=== PATIENT | male | born 1980 | race Caucasian/White ===

== ENCOUNTER 2021-03-24 22:57 | Inpatient (IN) ==
[2021-03-25] MEDS ORDERED: Naloxone 0.4 MG/ML INJ IVP PRN (01:33)
[2021-03-25 02:38] LABS: Amphetamine Screen,Urine Negative ng/mL (Cutoff=1000); Barbiturate Screen,Urine Negative ng/mL (Cutoff=200); Benzodiazepines Screen,Urine Negative ng/mL (Cutoff=200); Cannabinoid Screen,Urine Negative ng/mL (Cutoff = 50); Cocaine Screen,Urine Negative ng/mL (Cutoff= 300); Opiate Screen,Urine Positive ng/mL (Cutoff=300); Phencyclidine Screen,Urine Negative ng/mL (Cutoff=25)
[2021-03-25 02:45] LABS: Bilirubin,Urine Negative (Negative); Blood,Urine Moderate (Negative); Clarity,Urine Turbid (Clear); Color,Urine Yellow (Yellow); Glucose,Urine (UA) >=1000 mg/dL (Normal); Granular Casts,Urine Few per lpf (None Seen); Hyaline Casts,Urine Few per lpf (None Seen); Ketones,Urine Negative (Negative); Leukocyte Esterase,Urine Negative (Negative); Mucus,Urine Few per lpf (None-Few); Nitrite,Urine Negative (Negative); Protein,Urine >=300 mg/dL (Neg-Trace); Specific Gravity,Urine 1.025 (1.010-1.025); Urobilinogen,Urine Normal (Normal)
[2021-03-25] MEDS ORDERED: Melatonin 3 MG TABLET PO PRN (02:52)
[2021-03-25] MEDS ORDERED: Dextrose Gel 15 GM/37.5 ML TUBE PO PRN ×2 (02:54)
[2021-03-25 05:07] LABS: INR 1.2; Prothrombin Time 13.6 Seconds (9.4-12.1)
[2021-03-25 05:11] LABS: Activated Partial Thrombo Time 28.7 Seconds (26.0-36.0)
[2021-03-25 05:16] LABS: Basophils # 0.1 K/mcL (0.0-0.2); Basophils % 0.4 %; Eosinophils # 0.2 K/mcL (0.0-0.6); Eosinophils % 1.6 %; Hemoglobin 9.4 g/dL (12.9-16.9); Immature Granulocytes % 2.7 % (0-4); Lymphocytes # 2.2 K/mcL (0.6-4.6); Lymphocytes % 15.7 %; Mean Corpuscular HGB Conc 31.3 g/dL (31.6-35.5); Mean Corpuscular Hemoglobin 23.9 pg (28.0-33.3); Mean Corpuscular Volume 76.3 fL (83.0-100.0); Mean Platelet Volume 8.4 fL (9.4-12.4); Monocytes # 1.5 K/mcL (0.0-1.3); Monocytes % 10.6 %; Neutrophils # 9.5 K/mcL (1.6-8.9); Platelet Count 407 K/mcL (140-400); Red Blood Count 3.93 M/mcL (4.19-5.50); Red Cell Distribution Width 17.2 % (11.5-14.5); White Blood Count 13.8 K/mcL (4.3-11.1)
[2021-03-25] MEDS: Piperacillin/Tazobactam 3.375 GM in 0.9 % Sodium Chloride Mini Bag 100 ML IVPB SCH ×3 (05:18→21:03)
[2021-03-25 05:40] LABS: Albumin 2.9 g/dL (3.5-5.7); Albumin/Globulin Ratio 0.9 (1.1-2.2); Bilirubin,Total 0.2 mg/dL (0.3-1.0); Calcium 8.3 mg/dL (8.6-10.3); Globulin 3.3 g/dL (2.4-3.5); Phosphorous 4.3 mg/dL (2.7-4.5); Potassium 3.8 mEq/L (3.5-5.1); Total Protein 6.2 g/dL (6.4-8.9)
[2021-03-25] MEDS ORDERED: Acetaminophen IV 1,000 MG/100 ML BAG IVPB ONE (06:53)
[2021-03-25 16:43] LABS: Estimated Average Glucose 235 mg/dl; Hemoglobin A1C 9.8 %
[2021-03-25] MEDS ORDERED: Vancomycin 1,750 MG/517.5 ML IV.SOLN IVPB SCH (20:00)
[2021-03-26] MEDS: Piperacillin/Tazobactam 3.375 GM in 0.9 % Sodium Chloride Mini Bag 100 ML IVPB SCH ×2 (04:38→13:50)
[2021-03-26 10:21] LABS: Basophils % 0.6 %
[2021-03-26 10:22] LABS: Eosinophils % 2.4 %; Immature Granulocytes % 1.6 % (0-4); Lymphocytes % 17.2 %; Monocytes % 8.1 %; Segmented Neutrophils % 70.1 %
[2021-03-26 10:32] LABS: Eosinophils # 0.2 K/mcL (0.0-0.6); Hematocrit 27.4 % (37.5-50.1); Hemoglobin 8.9 g/dL (12.9-16.9); Immature Platelets 0.3 % (1.1-6.1); Lymphocytes # 1.2 K/mcL (0.6-4.6); Mean Corpuscular HGB Conc 32.5 g/dL (31.6-35.5); Mean Corpuscular Hemoglobin 24.1 pg (28.0-33.3); Mean Corpuscular Volume 74.3 fL (83.0-100.0); Monocytes # 0.6 K/mcL (0.0-1.3); Neutrophils # 5.1 K/mcL (1.6-8.9); Platelet Count 382 K/mcL (140-400); Red Blood Count 3.69 M/mcL (4.19-5.50); Red Cell Distribution Width 17.1 % (11.5-14.5); White Blood Count 7.2 K/mcL (4.3-11.1)
[2021-03-26 12:07] LABS: BUN/Creatinine Ratio 10 (6-26); Blood Urea Nitrogen 14 mg/dL (6-20); Carbon Dioxide 23 mEq/L (23-29); Chloride 104 mEq/L (98-107); Glucose 240 mg/dL (70-105); Osmolality,Calculated 282 (280-300); Potassium 4.8 mEq/L (3.5-5.1); Sodium 132 mEq/L (136-145); eGFR For African Americans > 60 (> 60); eGFR For Non-African Americans 56 (> 60)
[2021-03-26 13:34] LABS: C-Reactive Protein 141 mg/L (Less than 10)
[2021-03-26] MEDS: Ondansetron 4 MG/2 ML VIAL IVP PRN (14:25)
[2021-03-26] MEDS ORDERED: Vancomycin 1,500 MG/265 ML IV.SOLN IVPB SCH (15:00)
[2021-03-26] MEDS ORDERED: *HR* Heparin 5,000 UNIT/ML VIAL IVP PRN ×2 (16:38)
[2021-03-26] MEDS ORDERED: *HR* Heparin 5,000 UNIT/ML VIAL IVP ONE (16:38)
[2021-03-26] MEDS ORDERED: Heparin 25,000UNIT/250ML 1/2NS 25,000 UNIT/250 ML IV.SOLN IVC SCH (16:45)
[2021-03-26 17:28] LABS: Hematocrit 27.1 % (37.5-50.1); Hemoglobin 8.8 g/dL (12.9-16.9); Mean Corpuscular HGB Conc 32.5 g/dL (31.6-35.5); Mean Corpuscular Hemoglobin 24.1 pg (28.0-33.3); Mean Corpuscular Volume 74.2 fL (83.0-100.0); Mean Platelet Volume 7.8 fL (9.4-12.4); Platelet Count 357 K/mcL (140-400); Red Blood Count 3.65 M/mcL (4.19-5.50); Red Cell Distribution Width 17.1 % (11.5-14.5); White Blood Count 8.3 K/mcL (4.3-11.1)
[2021-03-26 17:36] LABS: Heparin anti-factor XA UFH < 0.04 IU/mL (0.30-0.70)
[2021-03-26 17:37] LABS: INR 1.1; Prothrombin Time 12.3 Seconds (9.4-12.1)
[2021-03-26] MEDS: amLODIPine 5 MG TABLET PO SCH (18:29)
[2021-03-26] MEDS ORDERED: Vancomycin 1,750 MG/517.5 ML IV.SOLN IVPB SCH (20:00)
[2021-03-26] MEDS: *HR* Promethazine 25 MG/ML VIAL IM PRN (20:21)
[2021-03-26] MEDS ORDERED: Vancomycin 2,000 MG/520 ML IV.SOLN IVPB SCH (21:00)
[2021-03-27] MEDS: Piperacillin/Tazobactam 3.375 GM in 0.9 % Sodium Chloride Mini Bag 100 ML IVPB SCH ×4 (00:11→20:44)
[2021-03-27] MEDS: *HR* Enoxaparin 120 MG/0.8 ML SYRINGE SQ SCH ×4 (00:32→20:44)
[2021-03-27 06:07] LABS: Basophils % 0.6 %; Eosinophils # 0.1 K/mcL (0.0-0.6); Eosinophils % 1.2 %; Hematocrit 27.8 % (37.5-50.1); Hemoglobin 8.9 g/dL (12.9-16.9); Immature Granulocytes % 1.9 % (0-4); Lymphocytes # 1.6 K/mcL (0.6-4.6); Lymphocytes % 24.8 %; Mean Corpuscular Hemoglobin 23.8 pg (28.0-33.3); Mean Corpuscular Volume 74.3 fL (83.0-100.0); Mean Platelet Volume 7.9 fL (9.4-12.4); Monocytes # 0.6 K/mcL (0.0-1.3); Monocytes % 8.5 %; Neutrophils # 4.1 K/mcL (1.6-8.9); Platelet Count 374 K/mcL (140-400); Red Blood Count 3.74 M/mcL (4.19-5.50); Red Cell Distribution Width 17.1 % (11.5-14.5); White Blood Count 6.5 K/mcL (4.3-11.1)
[2021-03-27 06:47] LABS: BUN/Creatinine Ratio 8 (6-26); Blood Urea Nitrogen 11 mg/dL (6-20); Carbon Dioxide 24 mEq/L (23-29); Chloride 104 mEq/L (98-107); Glucose 219 mg/dL (70-105); Osmolality,Calculated 286 (280-300); Potassium 4.3 mEq/L (3.5-5.1); Sodium 135 mEq/L (136-145); eGFR For African Americans > 60 (> 60); eGFR For Non-African Americans > 60 (> 60)
[2021-03-27] MEDS: Insulin DETEMIR 100 UNIT/ML X5UNITS SUBQ SCH ×2 (08:35→20:43)
[2021-03-27] MEDS: amLODIPine 5 MG TABLET PO SCH (08:35)
[2021-03-27] MEDS: lisinopriL 10 MG TABLET PO SCH (08:35)
[2021-03-27] MEDS: Insulin LISPRO 300 UNITS/3 ML VIAL SUBQ SCH ×4 (08:35→20:43)
[2021-03-28] MEDS: *HR* Promethazine 25 MG/ML VIAL IM PRN ×2 (00:02→05:13)
[2021-03-28] MEDS: Ondansetron 4 MG/2 ML VIAL IVP PRN ×2 (02:23→08:58)
[2021-03-28] MEDS: niCARdipine 20 MG/200 ML MLS IVC SCH ×5 (04:25→20:36)
[2021-03-28] MEDS: Piperacillin/Tazobactam 3.375 GM in 0.9 % Sodium Chloride Mini Bag 100 ML IVPB SCH ×3 (05:00→20:43)
[2021-03-28] MEDS: *HR* Enoxaparin 120 MG/0.8 ML SYRINGE SQ SCH ×2 (05:03→17:11)
[2021-03-28 05:14] LABS: Basophils % 0.3 %; Eosinophils % 0.4 %; Hematocrit 28.2 % (37.5-50.1); Hemoglobin 9.3 g/dL (12.9-16.9); Immature Granulocytes % 1.2 % (0-4); Lymphocytes # 0.9 K/mcL (0.6-4.6); Lymphocytes % 8.8 %; Mean Corpuscular Hemoglobin 24.5 pg (28.0-33.3); Mean Corpuscular Volume 74.2 fL (83.0-100.0); Mean Platelet Volume 7.5 fL (9.4-12.4); Monocytes # 0.6 K/mcL (0.0-1.3); Neutrophils # 8.3 K/mcL (1.6-8.9); Platelet Count 369 K/mcL (140-400); Red Cell Distribution Width 16.7 % (11.5-14.5); Segmented Neutrophils % 83.3 %
[2021-03-28 05:18] LABS: White Blood Count 9.9 K/mcL (4.3-11.1)
[2021-03-28 05:31] LABS: BUN/Creatinine Ratio 6 (6-26); Blood Urea Nitrogen 8 mg/dL (6-20); Carbon Dioxide 25 mEq/L (23-29); Chloride 103 mEq/L (98-107); Glucose 126 mg/dL (70-105); Osmolality,Calculated 282 (280-300); Potassium 3.5 mEq/L (3.5-5.1); Sodium 136 mEq/L (136-145); eGFR For African Americans > 60 (> 60); eGFR For Non-African Americans > 60 (> 60)
[2021-03-28] MEDS: Insulin LISPRO 300 UNITS/3 ML VIAL SUBQ SCH ×4 (05:49→20:41)
[2021-03-28 08:10] LABS: Lipase 16 Units/L (11-82)
[2021-03-28] MEDS ORDERED: Ondansetron 4 MG/2 ML VIAL IVP PRN (08:49)
[2021-03-28] MEDS: Insulin DETEMIR 100 UNIT/ML X5UNITS SUBQ SCH ×2 (08:49→20:41)
[2021-03-28] MEDS: Pantoprazole 40 MG VIAL IVP SCH ×2 (10:00→17:11)
[2021-03-28] MEDS: lisinopriL 10 MG TABLET PO SCH ×2 (10:01→10:05)
[2021-03-28] MEDS: amLODIPine 5 MG TABLET PO SCH ×2 (10:01→10:05)
[2021-03-28] MEDS ORDERED: Isovue-370 500 ML BOTTLE IVP ONE (10:15)
[2021-03-28] MEDS ORDERED: *HR* HYDROmorphone (PF) 1 MG/ML SYRINGE IVP ONE (18:53)
[2021-03-28] MEDS: niCARdipine 40 MG/200 ML MLS IVC SCH (23:00)
[2021-03-29 02:18] LABS: BUN/Creatinine Ratio 8 (6-26); Basophils % 0.5 %; Blood Urea Nitrogen 11 mg/dL (6-20); Calcium 7.8 mg/dL (8.6-10.3); Carbon Dioxide 27 mEq/L (23-29); Chloride 106 mEq/L (98-107); Eosinophils % 0.4 %; Glucose 179 mg/dL (70-105); Hematocrit 27.4 % (37.5-50.1); Hemoglobin 8.5 g/dL (12.9-16.9); Immature Granulocytes % 1.5 % (0-4); Lymphocytes # 1.5 K/mcL (0.6-4.6); Lymphocytes % 19.9 %; Mean Corpuscular Hemoglobin 23.5 pg (28.0-33.3); Mean Corpuscular Volume 75.7 fL (83.0-100.0); Mean Platelet Volume 7.6 fL (9.4-12.4); Monocytes # 0.8 K/mcL (0.0-1.3); Monocytes % 10.6 %; Osmolality,Calculated 288 (280-300); Platelet Count 338 K/mcL (140-400); Potassium 3.9 mEq/L (3.5-5.1); Red Blood Count 3.62 M/mcL (4.19-5.50); Red Cell Distribution Width 16.9 % (11.5-14.5); Segmented Neutrophils % 67.1 %; Sodium 137 mEq/L (136-145); White Blood Count 7.4 K/mcL (4.3-11.1); eGFR For African Americans > 60 (> 60); eGFR For Non-African Americans 59 (> 60)
[2021-03-29 02:32] LABS: Carcinoembryonic Antigen 3.9 ng/mL (Less than 5.0)
[2021-03-29] MEDS: *HR* Enoxaparin 120 MG/0.8 ML SYRINGE SQ SCH ×2 (05:12→17:30)
[2021-03-29] MEDS: Pantoprazole 40 MG VIAL IVP SCH ×2 (05:12→17:29)
[2021-03-29] MEDS: Piperacillin/Tazobactam 3.375 GM in 0.9 % Sodium Chloride Mini Bag 100 ML IVPB SCH ×3 (05:13→20:24)
[2021-03-29] MEDS: lisinopriL 10 MG TABLET PO SCH (08:32)
[2021-03-29] MEDS: amLODIPine 5 MG TABLET PO SCH (08:32)
[2021-03-29] MEDS: Insulin DETEMIR 100 UNIT/ML X5UNITS SUBQ SCH ×2 (08:43→20:24)
[2021-03-29] MEDS: Insulin LISPRO 300 UNITS/3 ML VIAL SUBQ SCH ×4 (08:44→21:17)
[2021-03-29] MEDS: *HR* Promethazine 25 MG/ML VIAL IM PRN ×2 (08:54→17:32)
[2021-03-29] MEDS: niCARdipine 40 MG/200 ML MLS IVC SCH ×3 (10:17→21:20)
[2021-03-29] MEDS: *HR* Dextrose 50 % in Water (Vial) 50 ML VIAL IVP PRN (20:23)
[2021-03-29] MEDS: D5% in Water 1,000 ML IVC PRN (22:09)
[2021-03-30] MEDS: *HR* Dextrose 50 % in Water (Vial) 50 ML VIAL IVP PRN ×4 (00:22→10:07)
[2021-03-30] MEDS: *HR* Promethazine 25 MG/ML VIAL IM PRN (03:53)
[2021-03-30] MEDS: D5% in Water 1,000 ML IVC PRN (06:37)
[2021-03-30] MEDS: niCARdipine 40 MG/200 ML MLS IVC SCH ×2 (07:42→10:06)
[2021-03-30] MEDS: Piperacillin/Tazobactam 3.375 GM in 0.9 % Sodium Chloride Mini Bag 100 ML IVPB SCH ×3 (07:42→15:09)
[2021-03-30] MEDS: amLODIPine 5 MG TABLET PO SCH (07:49)
[2021-03-30] MEDS: lisinopriL 10 MG TABLET PO SCH (07:49)
[2021-03-30] MEDS: *HR* Enoxaparin 120 MG/0.8 ML SYRINGE SQ SCH (07:49)
[2021-03-30] MEDS: Pantoprazole 40 MG VIAL IVP SCH ×2 (07:51→16:48)
[2021-03-30] MEDS: Insulin LISPRO 300 UNITS/3 ML VIAL SUBQ SCH ×4 (09:43→19:43)
[2021-03-30] MEDS: Insulin DETEMIR 100 UNIT/ML X5UNITS SUBQ SCH ×2 (09:44→19:43)
[2021-03-31] MEDS: Piperacillin/Tazobactam 3.375 GM in 0.9 % Sodium Chloride Mini Bag 100 ML IVPB SCH ×3 (00:37→14:59)
[2021-03-31 01:59] LABS: Basophils % 0.7 %; Eosinophils # 0.1 K/mcL (0.0-0.6); Eosinophils % 1.5 %; Hematocrit 30.7 % (37.5-50.1); Hemoglobin 9.6 g/dL (12.9-16.9); Lymphocytes # 1.9 K/mcL (0.6-4.6); Lymphocytes % 31.1 %; Mean Corpuscular HGB Conc 31.3 g/dL (31.6-35.5); Mean Corpuscular Hemoglobin 23.4 pg (28.0-33.3); Mean Corpuscular Volume 74.7 fL (83.0-100.0); Mean Platelet Volume 7.7 fL (9.4-12.4); Monocytes # 0.5 K/mcL (0.0-1.3); Monocytes % 8.2 %; Neutrophils # 3.4 K/mcL (1.6-8.9); Platelet Count 334 K/mcL (140-400); Red Blood Count 4.11 M/mcL (4.19-5.50); Red Cell Distribution Width 16.7 % (11.5-14.5); Segmented Neutrophils % 55.5 %; White Blood Count 6.1 K/mcL (4.3-11.1)
[2021-03-31 02:13] LABS: BUN/Creatinine Ratio 7 (6-26); Blood Urea Nitrogen 8 mg/dL (6-20); Calcium 7.8 mg/dL (8.6-10.3); Carbon Dioxide 23 mEq/L (23-29); Chloride 103 mEq/L (98-107); Glucose 128 mg/dL (70-105); Osmolality,Calculated 282 (280-300); Potassium 3.9 mEq/L (3.5-5.1); Sodium 136 mEq/L (136-145); eGFR For African Americans > 60 (> 60); eGFR For Non-African Americans > 60 (> 60)
[2021-03-31 02:29] LABS: Ferritin 71 ng/mL (20-250)
[2021-03-31] MEDS: Pantoprazole 40 MG VIAL IVP SCH ×2 (04:44→18:00)
[2021-03-31] MEDS: Insulin LISPRO 300 UNITS/3 ML VIAL SUBQ SCH ×4 (07:15→19:20)
[2021-03-31] MEDS: Insulin DETEMIR 100 UNIT/ML X5UNITS SUBQ SCH ×2 (07:16→19:19)
[2021-03-31] MEDS: lisinopriL 10 MG TABLET PO SCH (07:29)
[2021-03-31] MEDS: amLODIPine 5 MG TABLET PO SCH (07:29)
[2021-03-31 11:29] LABS: % Iron Saturation 11 % (20-55); Iron 28 mcg/dL (65-175); Transferrin 188 mg/dL (203-362)
[2021-03-31] MEDS ORDERED: *HR* FentaNYL (PF) 100 MCG/2 ML VIAL ONE (15:43)
[2021-03-31] MEDS ORDERED: Lidocaine -MPF 2% 2 ML VIAL ONE (15:43)
[2021-03-31] MEDS ORDERED: *HR* Midazolam HCl 2 MG/2 ML VIAL ONE (15:43)
[2021-03-31] MEDS ORDERED: *HR* Propofol 200 MG/20 ML VIAL IVP ONE (15:43)
[2021-03-31] MEDS ORDERED: *HR* OxyCODONE Immed Rel 5 MG TABLET PO PRN ×2 (15:51→18:12)
[2021-03-31] MEDS: *HR* HYDROmorphone PF 0.5 MG/0.5 ML SYRINGE IVP PRN ×3 (17:08→17:45)
[2021-03-31] MEDS ORDERED: *HR* Enoxaparin 100 MG/ML SYRINGE SQ STA ×2 (17:22→19:00)
[2021-03-31] MEDS ORDERED: Ondansetron 4 MG/2 ML VIAL IVP PRN (18:12)
[2021-03-31] MEDS ORDERED: *HR* HYDROmorphone PF 0.5 MG/0.5 ML SYRINGE IVP PRN (18:12)
[2021-03-31] MEDS ORDERED: *HR* Dextrose 50 % in Water (Vial) 50 ML VIAL IVP PRN (18:12)
[2021-03-31] MEDS ORDERED: D5% in Water 1,000 ML IVC PRN (18:12)
[2021-03-31] MEDS ORDERED: Naloxone 0.4 MG/ML INJ IVP PRN (18:12)
[2021-03-31] MEDS ORDERED: Dextrose Gel 15 GM/37.5 ML TUBE PO PRN ×2 (18:12)
[2021-04-01] MEDS: Piperacillin/Tazobactam 3.375 GM in 0.9 % Sodium Chloride Mini Bag 100 ML IVPB SCH ×4 (00:43→23:42)
[2021-04-01 01:34] LABS: Basophils % 0.7 %; Eosinophils # 0.1 K/mcL (0.0-0.6); Eosinophils % 1.9 %; Hematocrit 30.2 % (37.5-50.1); Hemoglobin 9.4 g/dL (12.9-16.9); Immature Granulocytes % 1.2 % (0-4); Lymphocytes # 1.8 K/mcL (0.6-4.6); Lymphocytes % 31.6 %; Mean Corpuscular HGB Conc 31.1 g/dL (31.6-35.5); Mean Corpuscular Hemoglobin 23.5 pg (28.0-33.3); Mean Corpuscular Volume 75.5 fL (83.0-100.0); Mean Platelet Volume 7.6 fL (9.4-12.4); Monocytes # 0.4 K/mcL (0.0-1.3); Monocytes % 6.5 %; Neutrophils # 3.4 K/mcL (1.6-8.9); Platelet Count 318 K/mcL (140-400); Red Cell Distribution Width 16.5 % (11.5-14.5); Segmented Neutrophils % 58.1 %; White Blood Count 5.8 K/mcL (4.3-11.1)
[2021-04-01 01:50] LABS: BUN/Creatinine Ratio 10 (6-26); Blood Urea Nitrogen 14 mg/dL (6-20); Calcium 7.7 mg/dL (8.6-10.3); Carbon Dioxide 24 mEq/L (23-29); Chloride 101 mEq/L (98-107); Glucose 231 mg/dL (70-105); Osmolality,Calculated 290 (280-300); Potassium 3.7 mEq/L (3.5-5.1); Sodium 136 mEq/L (136-145); eGFR For African Americans > 60 (> 60); eGFR For Non-African Americans 58 (> 60)
[2021-04-01] MEDS: *HR* Promethazine 25 MG/ML VIAL IM PRN ×2 (02:59→23:31)
[2021-04-01] MEDS: Pantoprazole 40 MG VIAL IVP SCH ×2 (05:08→16:31)
[2021-04-01] MEDS: amLODIPine 5 MG TABLET PO SCH (08:49)
[2021-04-01] MEDS: Insulin LISPRO 300 UNITS/3 ML VIAL SUBQ SCH ×4 (08:51→22:18)
[2021-04-01] MEDS: Insulin DETEMIR 100 UNIT/ML X5UNITS SUBQ SCH ×2 (08:56→22:18)
[2021-04-01] MEDS ORDERED: lisinopriL 10 MG TABLET PO SCH (09:00)
[2021-04-01] MEDS ORDERED: lisinopriL 10 MG TABLET PO ONE (11:46)
[2021-04-01] MEDS: 0.9 % Sodium Chloride 1,000 ML IVC SCH (12:41)
[2021-04-01] MEDS: *HR* Rivaroxaban 15 MG TABLET PO SCH (16:31)
[2021-04-01] MEDS ORDERED: *HR* Rivaroxaban 15 MG TABLET PO SCH (17:00)
[2021-04-01] MEDS: Melatonin 3 MG TABLET PO PRN (23:24)
[2021-04-02 02:49] LABS: Basophils % 0.4 %; Eosinophils # 0.1 K/mcL (0.0-0.6); Eosinophils % 1.4 %; Hematocrit 28.9 % (37.5-50.1); Hemoglobin 8.9 g/dL (12.9-16.9); Immature Granulocytes % 1.8 % (0-4); Lymphocytes # 1.7 K/mcL (0.6-4.6); Mean Corpuscular HGB Conc 30.8 g/dL (31.6-35.5); Mean Corpuscular Hemoglobin 23.5 pg (28.0-33.3); Mean Corpuscular Volume 76.3 fL (83.0-100.0); Mean Platelet Volume 7.8 fL (9.4-12.4); Monocytes # 0.4 K/mcL (0.0-1.3); Monocytes % 7.2 %; Neutrophils # 3.2 K/mcL (1.6-8.9); Platelet Count 295 K/mcL (140-400); Red Blood Count 3.79 M/mcL (4.19-5.50); Red Cell Distribution Width 16.4 % (11.5-14.5); Segmented Neutrophils % 58.2 %; White Blood Count 5.6 K/mcL (4.3-11.1)
[2021-04-02 03:01] LABS: BUN/Creatinine Ratio 14 (6-26); Blood Urea Nitrogen 19 mg/dL (6-20); Calcium 7.8 mg/dL (8.6-10.3); Carbon Dioxide 23 mEq/L (23-29); Chloride 108 mEq/L (98-107); Glucose 153 mg/dL (70-105); Osmolality,Calculated 295 (280-300); Potassium 4.2 mEq/L (3.5-5.1); Sodium 140 mEq/L (136-145); eGFR For African Americans > 60 (> 60); eGFR For Non-African Americans 56 (> 60)
[2021-04-02] MEDS: Pantoprazole 40 MG VIAL IVP SCH ×2 (06:00→17:11)
[2021-04-02] MEDS: Insulin LISPRO 300 UNITS/3 ML VIAL SUBQ SCH ×5 (08:20→20:26)
[2021-04-02] MEDS: amLODIPine 5 MG TABLET PO SCH (08:20)
[2021-04-02] MEDS: *HR* Rivaroxaban 15 MG TABLET PO SCH ×2 (08:20→17:10)
[2021-04-02] MEDS: lisinopriL 10 MG TABLET PO SCH (08:20)
[2021-04-02] MEDS: Piperacillin/Tazobactam 3.375 GM in 0.9 % Sodium Chloride Mini Bag 100 ML IVPB SCH ×3 (08:21→23:46)
[2021-04-02] MEDS: 0.9 % Sodium Chloride 1,000 ML IVC SCH (08:22)
[2021-04-02] MEDS: Insulin DETEMIR 100 UNIT/ML X5UNITS SUBQ SCH ×2 (08:30→20:25)
[2021-04-02] MEDS: Gabapentin 400 MG CAPSULE PO SCH ×2 (15:48→20:25)
[2021-04-02] MEDS: traZODone 50 MG TABLET PO SCH (20:25)
[2021-04-03] MEDS: Pantoprazole 40 MG VIAL IVP SCH (05:28)
[2021-04-03 08:09] LABS: Basophils % 0.7 %; Eosinophils # 0.1 K/mcL (0.0-0.6); Eosinophils % 1.3 %; Hematocrit 28.3 % (37.5-50.1); Hemoglobin 8.9 g/dL (12.9-16.9); Immature Granulocytes % 1.8 % (0-4); Lymphocytes # 1.8 K/mcL (0.6-4.6); Lymphocytes % 29.1 %; Mean Corpuscular HGB Conc 31.4 g/dL (31.6-35.5); Mean Corpuscular Volume 76.3 fL (83.0-100.0); Mean Platelet Volume 7.9 fL (9.4-12.4); Monocytes # 0.5 K/mcL (0.0-1.3); Monocytes % 8.8 %; Neutrophils # 3.5 K/mcL (1.6-8.9); Nucleated Red Blood Cells 0.3 /100 WBC (0); Platelet Count 260 K/mcL (140-400); Red Blood Count 3.71 M/mcL (4.19-5.50); Red Cell Distribution Width 16.7 % (11.5-14.5); Segmented Neutrophils % 58.3 %
[2021-04-03 08:15] LABS: BUN/Creatinine Ratio 16 (6-26); Blood Urea Nitrogen 22 mg/dL (6-20); Calcium 7.9 mg/dL (8.6-10.3); Carbon Dioxide 22 mEq/L (23-29); Chloride 111 mEq/L (98-107); Glucose 151 mg/dL (70-105); Osmolality,Calculated 298 (280-300); Potassium 3.9 mEq/L (3.5-5.1); Sodium 141 mEq/L (136-145); eGFR For African Americans > 60 (> 60); eGFR For Non-African Americans 58 (> 60)
[2021-04-03] MEDS: Insulin LISPRO 300 UNITS/3 ML VIAL SUBQ SCH ×4 (08:24→20:55)
[2021-04-03] MEDS: lisinopriL 10 MG TABLET PO SCH (09:04)
[2021-04-03] MEDS: *HR* Rivaroxaban 15 MG TABLET PO SCH (09:04)
[2021-04-03] MEDS: amLODIPine 5 MG TABLET PO SCH (09:04)
[2021-04-03] MEDS: Gabapentin 400 MG CAPSULE PO SCH ×3 (09:04→20:47)
[2021-04-03] MEDS: Piperacillin/Tazobactam 3.375 GM in 0.9 % Sodium Chloride Mini Bag 100 ML IVPB SCH ×3 (09:04→23:47)
[2021-04-03] MEDS: Insulin DETEMIR 100 UNIT/ML X5UNITS SUBQ SCH ×2 (09:06→20:46)
[2021-04-03] MEDS ORDERED: Heparin 1,000 UNITS/500 mL 500 ML ONE (09:49)
[2021-04-03] MEDS ORDERED: *HR* FentaNYL (PF) 100 MCG/2 ML VIAL ONE (10:00)
[2021-04-03] MEDS ORDERED: *HR* Midazolam HCl 2 MG/2 ML VIAL ONE (10:00)
[2021-04-03] MEDS ORDERED: 0.9 % Sodium Chloride 1,000 ML ONE (10:06)
[2021-04-03] MEDS ORDERED: Acetaminophen 325 MG TABLET PO PRN (10:39)
[2021-04-03] MEDS: traZODone 50 MG TABLET PO SCH (20:47)
[2021-04-03] MEDS: Melatonin 3 MG TABLET PO PRN (20:54)
[2021-04-03] MEDS: *HR* Promethazine 25 MG/ML VIAL IM PRN (20:54)
[2021-04-04 06:25] LABS: Basophils % 0.5 %; Eosinophils # 0.1 K/mcL (0.0-0.6); Eosinophils % 1.6 %; Hematocrit 28.2 % (37.5-50.1); Immature Granulocytes % 1.8 % (0-4); Lymphocytes # 1.4 K/mcL (0.6-4.6); Lymphocytes % 25.5 %; Mean Corpuscular HGB Conc 31.9 g/dL (31.6-35.5); Mean Corpuscular Hemoglobin 24.5 pg (28.0-33.3); Mean Corpuscular Volume 76.6 fL (83.0-100.0); Mean Platelet Volume 7.9 fL (9.4-12.4); Monocytes # 0.5 K/mcL (0.0-1.3); Neutrophils # 3.5 K/mcL (1.6-8.9); Platelet Count 268 K/mcL (140-400); Red Blood Count 3.68 M/mcL (4.19-5.50); Segmented Neutrophils % 62.6 %; White Blood Count 5.6 K/mcL (4.3-11.1)
[2021-04-04 06:48] LABS: BUN/Creatinine Ratio 20 (6-26); Blood Urea Nitrogen 26 mg/dL (6-20); Carbon Dioxide 21 mEq/L (23-29); Chloride 105 mEq/L (98-107); Glucose 261 mg/dL (70-105); Osmolality,Calculated 302 (280-300); Sodium 139 mEq/L (136-145); eGFR For African Americans > 60 (> 60); eGFR For Non-African Americans > 60 (> 60)
[2021-04-04] MEDS: Gabapentin 400 MG CAPSULE PO SCH ×3 (07:35→19:44)
[2021-04-04] MEDS: Insulin LISPRO 300 UNITS/3 ML VIAL SUBQ SCH ×4 (07:36→19:44)
[2021-04-04] MEDS: amLODIPine 5 MG TABLET PO SCH (07:36)
[2021-04-04] MEDS: lisinopriL 10 MG TABLET PO SCH (07:36)
[2021-04-04] MEDS: Piperacillin/Tazobactam 3.375 GM in 0.9 % Sodium Chloride Mini Bag 100 ML IVPB SCH ×2 (07:37→15:35)
[2021-04-04] MEDS: Insulin DETEMIR 100 UNIT/ML X5UNITS SUBQ SCH ×2 (11:56→19:44)
[2021-04-04] MEDS: 0.9 % Sodium Chloride 1,000 ML IVC SCH (13:40)
[2021-04-04] MEDS ORDERED: *HR* FentaNYL (PF) 100 MCG/2 ML VIAL ONE (14:45)
[2021-04-04] MEDS ORDERED: Ondansetron 4 MG/2 ML VIAL ONE (14:45)
[2021-04-04] MEDS ORDERED: Lidocaine -MPF 4% 5 ML AMPUL ONE (14:45)
[2021-04-04] MEDS ORDERED: Lidocaine -MPF 2% 2 ML VIAL ONE (14:45)
[2021-04-04] MEDS ORDERED: *HR* Midazolam HCl 2 MG/2 ML VIAL ONE (14:45)
[2021-04-04] MEDS ORDERED: *HR* Propofol 200 MG/20 ML VIAL IVP ONE ×2 (14:45→15:40)
[2021-04-04] MEDS ORDERED: Ropivacaine/PF 0.5% 30 ML VIAL ONE (14:53)
[2021-04-04] MEDS ORDERED: ROPIVACAINE/PF/NS 0.25% 1 EACH SYRINGE INTRAART ONE (14:53)
[2021-04-04] MEDS ORDERED: *HR* HYDROmorphone PF 0.5 MG/0.5 ML SYRINGE IVP PRN (17:44)
[2021-04-04] MEDS ORDERED: Naloxone 0.4 MG/ML INJ IVP PRN (17:48)
[2021-04-04] MEDS: *HR* HYDROcodone/Acet 5/325 mg TABLET PO PRN (18:18)
[2021-04-04] MEDS: Ketorolac 30 MG/ML VIAL IVP SCH ×2 (19:05→23:12)
[2021-04-04] MEDS: Ringers Solution, Lactated 1,000 ML IVC SCH (19:05)
[2021-04-04] MEDS: traZODone 50 MG TABLET PO SCH (19:44)
[2021-04-04] MEDS: Melatonin 3 MG TABLET PO PRN (19:44)
[2021-04-04] MEDS ORDERED: *HR* FentaNYL (PF) 100 MCG/2 ML VIAL IVP ONE (20:25)
[2021-04-04] MEDS ORDERED: *HR* HYDROmorphone (PF) 1 MG/ML SYRINGE IVP ONE (23:23)
[2021-04-04] MEDS: *HR* Promethazine 25 MG/ML VIAL IM PRN (23:29)
[2021-04-05] MEDS: Piperacillin/Tazobactam 3.375 GM in 0.9 % Sodium Chloride Mini Bag 100 ML IVPB SCH ×4 (00:09→23:33)
[2021-04-05] MEDS ORDERED: *HR* HYDROmorphone (PF) 1 MG/ML SYRINGE IVP ONE ×2 (02:38→05:29)
[2021-04-05] MEDS: 0.9 % Sodium Chloride 1,000 ML IVC SCH ×2 (03:00→16:00)
[2021-04-05] MEDS: Ketorolac 30 MG/ML VIAL IVP SCH ×2 (05:42→11:26)
[2021-04-05 06:26] LABS: Immature Granulocytes % 0.9 % (0-4)
[2021-04-05 06:28] LABS: Basophils % 0.2 %; Hematocrit 28.6 % (37.5-50.1); Hemoglobin 8.5 g/dL (12.9-16.9); Immature Platelets 1.1 % (1.1-6.1); Lymphocytes # 1.4 K/mcL (0.6-4.6); Lymphocytes % 13.1 %; Mean Corpuscular HGB Conc 29.7 g/dL (31.6-35.5); Mean Corpuscular Hemoglobin 23.5 pg (28.0-33.3); Mean Corpuscular Volume 79.2 fL (83.0-100.0); Monocytes # 0.6 K/mcL (0.0-1.3); Monocytes % 5.8 %; Neutrophils # 8.5 K/mcL (1.6-8.9); Platelet Count 272 K/mcL (140-400); Red Blood Count 3.61 M/mcL (4.19-5.50); Red Cell Distribution Width 16.8 % (11.5-14.5); White Blood Count 10.6 K/mcL (4.3-11.1)
[2021-04-05] MEDS ORDERED: Insulin LISPRO 300 UNITS/3 ML VIAL SUBQ ONE (07:45)
[2021-04-05] MEDS: Insulin DETEMIR 100 UNIT/ML X5UNITS SUBQ SCH ×2 (08:10→21:45)
[2021-04-05] MEDS: Gabapentin 400 MG CAPSULE PO SCH ×3 (08:10→20:18)
[2021-04-05] MEDS: Insulin LISPRO 300 UNITS/3 ML VIAL SUBQ SCH ×4 (08:11→21:45)
[2021-04-05] MEDS: lisinopriL 10 MG TABLET PO SCH (08:11)
[2021-04-05] MEDS: amLODIPine 5 MG TABLET PO SCH (08:11)
[2021-04-05] MEDS ORDERED: *HR* HYDROMORPHONE 2 MG/ML VIAL IVP ONE (08:18)
[2021-04-05 09:10] LABS: Calcium 8.1 mg/dL (8.6-10.3); Potassium 4.7 mEq/L (3.5-5.1)
[2021-04-05] MEDS ORDERED: *HR* Enoxaparin 40 MG/0.4 ML SYRINGE SQ ONE (12:19)
[2021-04-05] MEDS: Ringers Solution, Lactated 1,000 ML IVC SCH (13:06)
[2021-04-05] MEDS ORDERED: *HR* HYDROmorphone (PF) 1 MG/ML SYRINGE IVP PRN (13:58)
[2021-04-05] MEDS: *HR* HYDROmorphone (PF) 1 MG/ML SYRINGE IVP PRN ×2 (17:25→21:44)
[2021-04-05] MEDS: traZODone 50 MG TABLET PO SCH (20:19)
[2021-04-05] MEDS: *HR* Promethazine 25 MG/ML VIAL IM PRN (21:44)
[2021-04-05] MEDS: Melatonin 3 MG TABLET PO PRN (21:45)
[2021-04-05] MEDS: *HR* HYDROcodone/Acet 5/325 mg TABLET PO PRN (23:33)
[2021-04-06] MEDS: *HR* HYDROmorphone (PF) 1 MG/ML SYRINGE IVP PRN ×6 (01:50→20:03)
[2021-04-06] MEDS: Ringers Solution, Lactated 1,000 ML IVC SCH ×4 (03:13→21:15)
[2021-04-06 05:25] LABS: Amphetamine Screen,Urine Negative ng/mL (Cutoff=1000); Barbiturate Screen,Urine Negative ng/mL (Cutoff=200); Benzodiazepines Screen,Urine Negative ng/mL (Cutoff=200); Cannabinoid Screen,Urine Negative ng/mL (Cutoff = 50); Cocaine Screen,Urine Negative ng/mL (Cutoff= 300); Opiate Screen,Urine Positive ng/mL (Cutoff=300); Phencyclidine Screen,Urine Negative ng/mL (Cutoff=25)
[2021-04-06 05:32] LABS: Hematocrit 26.7 % (37.5-50.1); Hemoglobin 8.6 g/dL (12.9-16.9); Mean Corpuscular HGB Conc 32.2 g/dL (31.6-35.5); Mean Corpuscular Hemoglobin 24.4 pg (28.0-33.3); Mean Corpuscular Volume 75.6 fL (83.0-100.0); Mean Platelet Volume 8.8 fL (9.4-12.4); Platelet Count 247 K/mcL (140-400); Red Blood Count 3.53 M/mcL (4.19-5.50); Red Cell Distribution Width 17.4 % (11.5-14.5); White Blood Count 10.4 K/mcL (4.3-11.1)
[2021-04-06 05:48] LABS: Calcium 8.1 mg/dL (8.6-10.3); Potassium 4.3 mEq/L (3.5-5.1)
[2021-04-06] MEDS: 0.9 % Sodium Chloride 1,000 ML IVC SCH (05:59)
[2021-04-06] MEDS: Insulin LISPRO 300 UNITS/3 ML VIAL SUBQ SCH ×3 (11:36→20:04)
[2021-04-06] MEDS: *HR* HYDROcodone/Acet 5/325 mg TABLET PO PRN ×3 (13:18→22:38)
[2021-04-06] MEDS: Gabapentin 400 MG CAPSULE PO SCH (13:19)
[2021-04-06] MEDS: Topiramate 25 MG CAP.SPRINK PO SCH ×2 (15:27→21:16)
[2021-04-06] MEDS: *HR* Promethazine 25 MG/ML VIAL IM PRN (15:30)
[2021-04-06] MEDS: traZODone 50 MG TABLET PO SCH (19:56)
[2021-04-06] MEDS: Pregabalin 75 MG CAPSULE PO SCH (19:56)
[2021-04-06] MEDS: Lactobacillus 1 EACH CAP.SPRINK PO SCH (19:56)
[2021-04-06] MEDS: Insulin DETEMIR 100 UNIT/ML X5UNITS SUBQ SCH (20:04)
[2021-04-06] MEDS ORDERED: Topiramate 25 MG CAP.SPRINK PO SCH (21:00)
[2021-04-07] MEDS: *HR* HYDROmorphone (PF) 1 MG/ML SYRINGE IVP PRN ×2 (03:42→08:41)
[2021-04-07] MEDS: *HR* HYDROcodone/Acet 5/325 mg TABLET PO PRN (05:37)
[2021-04-07] MEDS: Insulin LISPRO 300 UNITS/3 ML VIAL SUBQ SCH ×4 (07:19→21:37)
[2021-04-07] MEDS: Lactobacillus 1 EACH CAP.SPRINK PO SCH ×2 (08:39→21:37)
[2021-04-07] MEDS: Pregabalin 75 MG CAPSULE PO SCH ×3 (08:40→21:36)
[2021-04-07] MEDS: amLODIPine 5 MG TABLET PO SCH (08:40)
[2021-04-07] MEDS: Topiramate 25 MG CAP.SPRINK PO SCH ×2 (08:40→21:36)
[2021-04-07] MEDS ORDERED: Insulin DETEMIR 100 UNIT/ML X5UNITS SUBQ ONE (08:59)
[2021-04-07 09:18] LABS: Basophils # 0.1 K/mcL (0.0-0.2); Basophils % 0.7 %; Eosinophils # 0.1 K/mcL (0.0-0.6); Eosinophils % 0.9 %; Hematocrit 25.8 % (37.5-50.1); Hemoglobin 8.2 g/dL (12.9-16.9); Immature Granulocytes % 1.8 % (0-4); Lymphocytes % 26.6 %; Mean Corpuscular HGB Conc 31.8 g/dL (31.6-35.5); Mean Corpuscular Hemoglobin 24.2 pg (28.0-33.3); Mean Corpuscular Volume 76.1 fL (83.0-100.0); Mean Platelet Volume 8.2 fL (9.4-12.4); Monocytes # 0.8 K/mcL (0.0-1.3); Monocytes % 10.9 %; Neutrophils # 4.5 K/mcL (1.6-8.9); Platelet Count 247 K/mcL (140-400); Red Blood Count 3.39 M/mcL (4.19-5.50); Red Cell Distribution Width 17.6 % (11.5-14.5); Segmented Neutrophils % 59.1 %; White Blood Count 7.7 K/mcL (4.3-11.1)
[2021-04-07 09:32] LABS: BUN/Creatinine Ratio 21 (6-26); Blood Urea Nitrogen 29 mg/dL (6-20); Calcium 8.4 mg/dL (8.6-10.3); Carbon Dioxide 22 mEq/L (23-29); Chloride 108 mEq/L (98-107); Glucose 87 mg/dL (70-105); Osmolality,Calculated 289 (280-300); Potassium 4.2 mEq/L (3.5-5.1); Sodium 137 mEq/L (136-145); eGFR For African Americans > 60 (> 60); eGFR For Non-African Americans 58 (> 60)
[2021-04-07] MEDS: Ringers Solution, Lactated 1,000 ML IVC SCH ×2 (10:05→18:29)
[2021-04-07] MEDS ORDERED: *HR* HYDROmorphone (PF) 1 MG/ML SYRINGE IVP PRN (11:26)
[2021-04-07 11:50] LABS: Adenovirus F 40/41 PCR Not detected (Not detect); Astrovirus PCR Not detected (Not detect); C.difficile Toxin A/B Gene PCR Not detected (Not detect); Campylobacter by PCR Not detected (Not detect); Cryptosporidium by PCR Not detected (Not detect); Cyclospora cayetanensis PCR Not detected (Not detect); E. coli O157 by PCR Not detected (Not detect); Entamoeba histolytica PCR Not detected (Not detect); Enteroaggregative E.coli(EAEC) Not detected (Not detect); Enteropathogenic E.coli(EPEC) Not detected (Not detect); Enterotoxigenic E.coli (ETEC) Not detected (Not detect); Giardia lamblia PCR Not detected (Not detect); Norovirus GI/GII PCR Not detected (Not detect); Plesiomonas shigelloides PCR Not detected (Not detect); Rotavirus A PCR Not detected (Not detect); Salmonella PCR Not detected (Not detect); Sapovirus PCR Not detected (Not detect); Shig/EnteroinvasiveE coli EIEC Not detected (Not detect); Shigalike tox-prod E coli STEC Not detected (Not detect); Vibrio PCR Not detected (Not detect); Vibrio cholerae PCR Not detected (Not detect); Yersinia enterocolitica PCR Not detected (Not detect)
[2021-04-07] MEDS: *HR* OxyCODONE Immed Rel 5 MG TABLET PO PRN ×2 (12:12→18:29)
[2021-04-07] MEDS: *HR* Promethazine 25 MG/ML VIAL IM PRN (15:19)
[2021-04-07] MEDS: hydrALAZINE 25 MG TABLET PO SCH ×2 (15:19→21:37)
[2021-04-07] MEDS: traZODone 50 MG TABLET PO SCH (21:36)
[2021-04-07] MEDS: Insulin DETEMIR 100 UNIT/ML X5UNITS SUBQ SCH (21:37)
[2021-04-08] MEDS: *HR* OxyCODONE Immed Rel 5 MG TABLET PO PRN ×3 (00:09→12:34)
[2021-04-08 03:17] LABS: Basophils # 0.1 K/mcL (0.0-0.2); Basophils % 0.7 %; Eosinophils # 0.1 K/mcL (0.0-0.6); Eosinophils % 1.1 %; Hematocrit 27.5 % (37.5-50.1); Hemoglobin 8.4 g/dL (12.9-16.9); Immature Granulocytes % 1.6 % (0-4); Immature Platelets 0.6 % (1.1-6.1); Lymphocytes # 1.7 K/mcL (0.6-4.6); Lymphocytes % 23.2 %; Mean Corpuscular HGB Conc 30.5 g/dL (31.6-35.5); Mean Corpuscular Hemoglobin 23.8 pg (28.0-33.3); Mean Corpuscular Volume 77.9 fL (83.0-100.0); Mean Platelet Volume 8.3 fL (9.4-12.4); Monocytes # 0.7 K/mcL (0.0-1.3); Monocytes % 9.6 %; Neutrophils # 4.8 K/mcL (1.6-8.9); Platelet Count 272 K/mcL (140-400); Red Blood Count 3.53 M/mcL (4.19-5.50); Red Cell Distribution Width 17.4 % (11.5-14.5); Segmented Neutrophils % 63.8 %; White Blood Count 7.5 K/mcL (4.3-11.1)
[2021-04-08 03:31] LABS: Calcium 8.3 mg/dL (8.6-10.3); Potassium 3.9 mEq/L (3.5-5.1)
[2021-04-08] MEDS: Ringers Solution, Lactated 1,000 ML IVC SCH ×2 (03:40→11:25)
[2021-04-08 03:50] LABS: Platelet Estimate Normal (Normal)
[2021-04-08] MEDS: hydrALAZINE 25 MG TABLET PO SCH ×2 (08:42→14:56)
[2021-04-08] MEDS: Lactobacillus 1 EACH CAP.SPRINK PO SCH (08:42)
[2021-04-08] MEDS: Insulin LISPRO 300 UNITS/3 ML VIAL SUBQ SCH ×2 (08:42→12:27)
[2021-04-08] MEDS: *HR* Rivaroxaban 15 MG TABLET PO SCH (08:42)
[2021-04-08] MEDS: amLODIPine 5 MG TABLET PO SCH (08:42)
[2021-04-08] MEDS: Insulin DETEMIR 100 UNIT/ML X5UNITS SUBQ SCH (08:42)
[2021-04-08] MEDS: Topiramate 25 MG CAP.SPRINK PO SCH (08:42)
[2021-04-08] MEDS: Pregabalin 75 MG CAPSULE PO SCH ×2 (08:42→14:56)
[2021-04-08 11:24] VITALS: BP 143/78
== END 2021-04-08 15:11 | disposition home health service (06) | DRG 854 ==
LOC: 3NENU → SUATTDRO 03-26 20:56 → 2NNU 03-27 00:55 → 2ANU 03-30 04:44
PROVIDERS: ADMIT Family Medicine; ATTEND Family Medicine

== ENCOUNTER 2021-04-23 06:47 | Inpatient (IN) ==
[2021-04-23] MEDS ORDERED: Naloxone 0.4 MG/ML INJ IVP PRN (11:39)
[2021-04-23] MEDS ORDERED: Acetaminophen 325 MG TABLET PO PRN (12:47)
[2021-04-23] MEDS ORDERED: *HR* HYDROmorphone 2 MG/ML SYRINGE IVP ONE (13:26)
[2021-04-23] MEDS ORDERED: *HR* HYDROmorphone (PF) 1 MG/ML SYRINGE IVP PRN (13:49)
[2021-04-23] MEDS ORDERED: Vancomycin 1 EACH in 0.9 % Sodium Chloride 250 ML IVPB PRN (14:00)
[2021-04-23] MEDS: Ringers Solution, Lactated 1,000 ML IVC SCH ×2 (14:20→23:25)
[2021-04-23] MEDS ORDERED: *HR* Heparin 5,000 UNIT/ML VIAL IVP PRN ×2 (14:43)
[2021-04-23] MEDS ORDERED: Heparin 25,000UNIT/250ML 1/2NS 25,000 UNIT/250 ML IV.SOLN IVC SCH ×2 (14:45→14:55)
[2021-04-23 15:12] LABS: Basophils % 0.5 %; Eosinophils # 0.2 K/mcL (0.0-0.6); Eosinophils % 2.2 %; Hematocrit 26.9 % (37.5-50.1); Hemoglobin 8.3 g/dL (12.9-16.9); Immature Granulocytes % 1.8 % (0-4); Lymphocytes # 1.6 K/mcL (0.6-4.6); Lymphocytes % 18.7 %; Mean Corpuscular HGB Conc 30.9 g/dL (31.6-35.5); Mean Corpuscular Volume 74.5 fL (83.0-100.0); Monocytes # 0.8 K/mcL (0.0-1.3); Monocytes % 9.3 %; Neutrophils # 5.8 K/mcL (1.6-8.9); Platelet Count 403 K/mcL (140-400); Red Blood Count 3.61 M/mcL (4.19-5.50); Red Cell Distribution Width 15.3 % (11.5-14.5); Segmented Neutrophils % 67.5 %; White Blood Count 8.6 K/mcL (4.3-11.1)
[2021-04-23 15:33] LABS: Calcium 8.1 mg/dL (8.6-10.3); Potassium 4.1 mEq/L (3.5-5.1)
[2021-04-23] MEDS ORDERED: Dextrose Gel 15 GM/37.5 ML TUBE PO PRN (15:38)
[2021-04-23] MEDS ORDERED: D5% in Water 1,000 ML IVC PRN (15:38)
[2021-04-23] MEDS ORDERED: *HR* Dextrose 50 % in Water (Vial) 50 ML VIAL IVP PRN (15:38)
[2021-04-23] MEDS: Piperacillin/Tazobactam 3.375 GM in 0.9 % Sodium Chloride Mini Bag 100 ML IVPB SCH ×2 (17:26→23:26)
[2021-04-23] MEDS: *HR* HYDROmorphone (PF) 1 MG/ML SYRINGE IVP PRN ×2 (17:27→21:33)
[2021-04-23] MEDS: Insulin LISPRO 300 UNITS/3 ML VIAL SUBQ SCH (17:42)
[2021-04-23] MEDS: Topiramate 25 MG CAP.SPRINK PO SCH (20:08)
[2021-04-23] MEDS: hydrALAZINE 25 MG TABLET PO SCH (20:08)
[2021-04-23] MEDS: Dextrose Gel 15 GM/37.5 ML TUBE PO PRN (20:20)
[2021-04-23] MEDS ORDERED: traZODone 50 MG TABLET PO SCH (21:00)
[2021-04-23] MEDS ORDERED: Insulin LISPRO 300 UNITS/3 ML VIAL SUBQ SCH (21:00)
[2021-04-23] MEDS ORDERED: Melatonin 3 MG TABLET PO SCH (21:00)
[2021-04-24] MEDS ORDERED: Ketorolac 30 MG/ML VIAL IVP PRN (01:27)
[2021-04-24] MEDS ORDERED: *HR* HYDROmorphone (PF) 1 MG/ML SYRINGE IVP ONE (01:27)
[2021-04-24] MEDS ORDERED: tiZANidine 4 MG TABLET PO PRN (01:28)
[2021-04-24 02:21] LABS: Basophils # 0.1 K/mcL (0.0-0.2); Basophils % 0.7 %; Eosinophils # 0.3 K/mcL (0.0-0.6); Eosinophils % 2.9 %; Hematocrit 27.9 % (37.5-50.1); Hemoglobin 8.4 g/dL (12.9-16.9); Immature Granulocytes % 1.6 % (0-4); Lymphocytes # 2.4 K/mcL (0.6-4.6); Lymphocytes % 27.7 %; Mean Corpuscular HGB Conc 30.1 g/dL (31.6-35.5); Mean Corpuscular Hemoglobin 22.9 pg (28.0-33.3); Mean Platelet Volume 8.5 fL (9.4-12.4); Monocytes # 0.7 K/mcL (0.0-1.3); Monocytes % 7.8 %; Neutrophils # 5.2 K/mcL (1.6-8.9); Platelet Count 495 K/mcL (140-400); Red Blood Count 3.67 M/mcL (4.19-5.50); Red Cell Distribution Width 15.2 % (11.5-14.5); Segmented Neutrophils % 59.3 %; White Blood Count 8.7 K/mcL (4.3-11.1)
[2021-04-24 02:39] LABS: Calcium 8.2 mg/dL (8.6-10.3); Potassium 4.4 mEq/L (3.5-5.1)
[2021-04-24] MEDS ORDERED: Vancomycin 1,500 MG/265 ML IV.SOLN IVPB ONE (07:44)
[2021-04-24] MEDS: *HR* HYDROmorphone (PF) 1 MG/ML SYRINGE IVP PRN ×2 (08:26→22:50)
[2021-04-24] MEDS: Topiramate 25 MG CAP.SPRINK PO SCH ×2 (08:28→20:37)
[2021-04-24] MEDS: hydrALAZINE 25 MG TABLET PO SCH ×3 (08:28→20:41)
[2021-04-24] MEDS: Piperacillin/Tazobactam 3.375 GM in 0.9 % Sodium Chloride Mini Bag 100 ML IVPB SCH ×2 (08:28→16:54)
[2021-04-24] MEDS: Insulin LISPRO 300 UNITS/3 ML VIAL SUBQ SCH ×4 (08:29→20:24)
[2021-04-24] MEDS ORDERED: amLODIPine 5 MG TABLET PO SCH (09:00)
[2021-04-24] MEDS ORDERED: (Buprenorphine Hcl/Naloxone Hcl [Suboxone 8 Mg-2 Mg]) SL SCH (12:30)
[2021-04-24] MEDS: Dextrose Gel 15 GM/37.5 ML TUBE PO PRN (12:48)
[2021-04-24] MEDS: Ringers Solution, Lactated 1,000 ML IVC SCH ×2 (12:49→16:54)
[2021-04-24] MEDS ORDERED: *HR* FentaNYL (PF) 100 MCG/2 ML VIAL ONE (13:39)
[2021-04-24] MEDS ORDERED: *HR* Midazolam HCl 2 MG/2 ML VIAL ONE (13:40)
[2021-04-24] MEDS ORDERED: *HR* Propofol 200 MG/20 ML VIAL IVP ONE (13:40)
[2021-04-24] MEDS ORDERED: *HR* Succinylcholine 200 MG/10 ML VIAL IVP ONE (13:46)
[2021-04-24] MEDS ORDERED: *HR* Rocuronium Bromide 50 MG/5 ML VIAL ONE (13:47)
[2021-04-24] MEDS ORDERED: Bupivacaine-MPF 0.25% 10 ML VIAL ONE (13:52)
[2021-04-24] MEDS ORDERED: Vancomycin 1,000 MG VIAL ONE (13:52)
[2021-04-24] MEDS ORDERED: Lidocaine/EPI 1:100k 1% 50 ML VIAL ONE (13:52)
[2021-04-24] MEDS ORDERED: Vancomycin 1,000 MG, Sodium Chloride IRRigation 1,000 ML IR ONE (14:45)
[2021-04-24] MEDS ORDERED: EPHEDrine 50 MG/ML VIAL ONE (15:05)
[2021-04-24] MEDS: *HR* FentaNYL (PF) 100 MCG/2 ML VIAL IVP PRN ×2 (15:58→16:04)
[2021-04-24] MEDS: *HR* HYDROmorphone PF 0.5 MG/0.5 ML SYRINGE IVP PRN ×2 (16:09→16:20)
[2021-04-24] MEDS ORDERED: Naloxone 0.4 MG/ML INJ IVP PRN (16:52)
[2021-04-24] MEDS ORDERED: Dextrose Gel 15 GM/37.5 ML TUBE PO PRN ×2 (16:52)
[2021-04-24] MEDS ORDERED: *HR* Dextrose 50 % in Water (Vial) 50 ML VIAL IVP PRN (16:52)
[2021-04-24] MEDS ORDERED: D5% in Water 1,000 ML IVC PRN (16:52)
[2021-04-24] MEDS ORDERED: Vancomycin 1 EACH in 0.9 % Sodium Chloride 250 ML IVPB PRN (16:52)
[2021-04-24] MEDS ORDERED: Heparin 25,000UNIT/250ML 1/2NS 25,000 UNIT/250 ML IV.SOLN IVC SCH (17:00)
[2021-04-24] MEDS ORDERED: *HR* Heparin 5,000 UNIT/ML VIAL IVP PRN ×2 (17:00)
[2021-04-24 18:32] LABS: Hemoglobin 7.5 g/dL (12.9-16.9); Mean Corpuscular Hemoglobin 23.1 pg (28.0-33.3); Mean Corpuscular Volume 77.2 fL (83.0-100.0); Platelet Count 372 K/mcL (140-400); Red Blood Count 3.24 M/mcL (4.19-5.50); Red Cell Distribution Width 15.2 % (11.5-14.5); White Blood Count 6.2 K/mcL (4.3-11.1)
[2021-04-24 18:39] LABS: INR 1.1; Prothrombin Time 12.3 Seconds (9.4-12.1)
[2021-04-24] MEDS: Melatonin 3 MG TABLET PO SCH (20:31)
[2021-04-24] MEDS: traZODone 50 MG TABLET PO SCH (20:37)
[2021-04-24] MEDS: Pregabalin 75 MG CAPSULE PO SCH (20:38)
[2021-04-24] MEDS ORDERED: Pregabalin 75 MG CAPSULE PO SCH (21:00)
[2021-04-25] MEDS: Piperacillin/Tazobactam 3.375 GM in 0.9 % Sodium Chloride Mini Bag 100 ML IVPB SCH ×3 (00:46→15:12)
[2021-04-25 05:37] LABS: Basophils % 0.3 %; Hematocrit 24.6 % (37.5-50.1); Hemoglobin 7.4 g/dL (12.9-16.9); Immature Granulocytes % 1.4 % (0-4); Lymphocytes # 1.4 K/mcL (0.6-4.6); Lymphocytes % 21.2 %; Mean Corpuscular HGB Conc 30.1 g/dL (31.6-35.5); Mean Corpuscular Hemoglobin 23.1 pg (28.0-33.3); Mean Corpuscular Volume 76.6 fL (83.0-100.0); Mean Platelet Volume 8.3 fL (9.4-12.4); Monocytes # 0.3 K/mcL (0.0-1.3); Monocytes % 5.1 %; Neutrophils # 4.6 K/mcL (1.6-8.9); Platelet Count 422 K/mcL (140-400); Red Blood Count 3.21 M/mcL (4.19-5.50); Red Cell Distribution Width 15.4 % (11.5-14.5); White Blood Count 6.4 K/mcL (4.3-11.1)
[2021-04-25] MEDS: Ringers Solution, Lactated 1,000 ML IVC SCH ×4 (05:50→16:22)
[2021-04-25 06:07] LABS: Calcium 8.1 mg/dL (8.6-10.3); Magnesium 1.8 mg/dL (1.6-2.6); Phosphorous 3.1 mg/dL (2.7-4.5); Potassium 4.6 mEq/L (3.5-5.1)
[2021-04-25] MEDS: Insulin LISPRO 300 UNITS/3 ML VIAL SUBQ SCH ×4 (09:02→20:22)
[2021-04-25] MEDS: Topiramate 25 MG CAP.SPRINK PO SCH ×2 (09:05→19:56)
[2021-04-25] MEDS: amLODIPine 5 MG TABLET PO SCH (09:05)
[2021-04-25] MEDS: hydrALAZINE 25 MG TABLET PO SCH ×3 (09:05→19:56)
[2021-04-25] MEDS: Pregabalin 75 MG CAPSULE PO SCH ×3 (09:05→19:56)
[2021-04-25] MEDS: *HR* Rivaroxaban 15 MG TABLET PO SCH ×2 (09:06→19:55)
[2021-04-25] MEDS: *HR* HYDROmorphone (PF) 1 MG/ML SYRINGE IVP PRN ×2 (11:10→19:59)
[2021-04-25] MEDS ORDERED: Vancomycin 1,750 MG/517.5 ML IV.SOLN IVPB ONE (15:15)
[2021-04-25] MEDS: Melatonin 3 MG TABLET PO SCH (19:55)
[2021-04-25] MEDS: traZODone 50 MG TABLET PO SCH (19:56)
[2021-04-25] MEDS: Insulin DETEMIR 100 UNIT/ML X5UNITS SUBQ SCH (20:27)
[2021-04-25] MEDS ORDERED: Insulin DETEMIR 100 UNIT/ML X5UNITS SUBQ SCH (21:00)
[2021-04-26] MEDS: Piperacillin/Tazobactam 3.375 GM in 0.9 % Sodium Chloride Mini Bag 100 ML IVPB SCH ×3 (00:44→16:39)
[2021-04-26] MEDS: *HR* HYDROmorphone (PF) 1 MG/ML SYRINGE IVP PRN ×4 (04:19→18:00)
[2021-04-26] MEDS: *HR* Rivaroxaban 15 MG TABLET PO SCH ×2 (07:41→20:58)
[2021-04-26] MEDS: hydrALAZINE 25 MG TABLET PO SCH ×3 (07:41→20:57)
[2021-04-26] MEDS: amLODIPine 5 MG TABLET PO SCH (07:41)
[2021-04-26] MEDS: Topiramate 25 MG CAP.SPRINK PO SCH ×2 (07:41→20:58)
[2021-04-26] MEDS: Pregabalin 75 MG CAPSULE PO SCH ×3 (07:41→20:58)
[2021-04-26] MEDS: Insulin LISPRO 300 UNITS/3 ML VIAL SUBQ SCH ×4 (09:03→21:05)
[2021-04-26] MEDS: Insulin DETEMIR 100 UNIT/ML X5UNITS SUBQ SCH ×2 (09:03→20:59)
[2021-04-26 11:22] LABS: Basophils # 0.1 K/mcL (0.0-0.2); Basophils % 0.8 %; Eosinophils # 0.2 K/mcL (0.0-0.6); Eosinophils % 2.3 %; Hematocrit 23.5 % (37.5-50.1); Hemoglobin 7.3 g/dL (12.9-16.9); Immature Granulocytes % 5.1 % (0-4); Lymphocytes # 2.1 K/mcL (0.6-4.6); Lymphocytes % 32.1 %; Mean Corpuscular HGB Conc 31.1 g/dL (31.6-35.5); Mean Corpuscular Hemoglobin 23.3 pg (28.0-33.3); Mean Corpuscular Volume 75.1 fL (83.0-100.0); Mean Platelet Volume 8.6 fL (9.4-12.4); Monocytes # 0.5 K/mcL (0.0-1.3); Monocytes % 7.1 %; Neutrophils # 3.4 K/mcL (1.6-8.9); Nucleated Red Blood Cells 0.5 /100 WBC (0); Platelet Count 438 K/mcL (140-400); Red Blood Count 3.13 M/mcL (4.19-5.50); Red Cell Distribution Width 15.6 % (11.5-14.5); Segmented Neutrophils % 52.6 %; White Blood Count 6.5 K/mcL (4.3-11.1)
[2021-04-26 11:46] LABS: Magnesium 1.8 mg/dL (1.6-2.6); Phosphorous 2.5 mg/dL (2.7-4.5); Potassium 4.2 mEq/L (3.5-5.1)
[2021-04-26] MEDS ORDERED: Vancomycin 1,750 MG/517.5 ML IV.SOLN IVPB SCH (16:00)
[2021-04-26] MEDS: traZODone 50 MG TABLET PO SCH (20:58)
[2021-04-26] MEDS: Melatonin 3 MG TABLET PO SCH (20:58)
[2021-04-27] MEDS: Piperacillin/Tazobactam 3.375 GM in 0.9 % Sodium Chloride Mini Bag 100 ML IVPB SCH ×2 (00:24→10:01)
[2021-04-27] MEDS: *HR* HYDROmorphone (PF) 1 MG/ML SYRINGE IVP PRN ×2 (00:42→10:03)
[2021-04-27] MEDS: hydrALAZINE 25 MG TABLET PO SCH ×3 (10:01→20:11)
[2021-04-27] MEDS: amLODIPine 5 MG TABLET PO SCH (10:01)
[2021-04-27] MEDS: Pregabalin 75 MG CAPSULE PO SCH ×3 (10:01→20:10)
[2021-04-27] MEDS: Topiramate 25 MG CAP.SPRINK PO SCH ×2 (10:01→20:08)
[2021-04-27] MEDS: *HR* Rivaroxaban 15 MG TABLET PO SCH ×2 (10:01→20:10)
[2021-04-27] MEDS: Insulin LISPRO 300 UNITS/3 ML VIAL SUBQ SCH ×4 (10:02→20:47)
[2021-04-27] MEDS: Insulin DETEMIR 100 UNIT/ML X5UNITS SUBQ SCH ×2 (10:11→20:44)
[2021-04-27] MEDS: cefTRIAXone 2,000 MG in 0.9 % Sodium Chloride Mini Bag 100 ML IVPB SCH (14:51)
[2021-04-27] MEDS: metroNIDAZOLE 500 MG TABLET PO SCH ×2 (14:51→20:08)
[2021-04-27 14:54] LABS: Hematocrit 26.6 % (37.5-50.1); Mean Corpuscular HGB Conc 30.1 g/dL (31.6-35.5); Mean Corpuscular Hemoglobin 23.2 pg (28.0-33.3); Mean Corpuscular Volume 77.1 fL (83.0-100.0); Mean Platelet Volume 7.8 fL (9.4-12.4); Nucleated Red Blood Cells 0.8 /100 WBC (0); Platelet Count 412 K/mcL (140-400); Red Blood Count 3.45 M/mcL (4.19-5.50); Red Cell Distribution Width 15.7 % (11.5-14.5); White Blood Count 6.6 K/mcL (4.3-11.1)
[2021-04-27] MEDS ORDERED: *HR* HYDROmorphone (PF) 1 MG/ML SYRINGE IVP ONE (15:11)
[2021-04-27 15:27] LABS: Eosinophils # 0.4 K/mcL (0.0-0.6); Lymphocytes # 1.4 K/mcL (0.6-4.6); Monocytes # 0.6 K/mcL (0.0-1.3); Neutrophils # 4.2 K/mcL (1.6-8.9); Platelet Estimate Normal (Normal)
[2021-04-27 15:38] LABS: Alanine Aminotransferase 17 Units/L (7-52); Albumin 2.7 g/dL (3.5-5.7); Albumin/Globulin Ratio 0.9 (1.1-2.2); Alkaline Phosphatase 76 Units/L (34-104); Aspartate Amino Transferase 25 Units/L (13-39); BUN/Creatinine Ratio 16 (6-26); Bilirubin,Total 0.1 mg/dL (0.3-1.0); Blood Urea Nitrogen 25 mg/dL (6-20); Calcium 8.3 mg/dL (8.6-10.3); Calcium 8.4 mg/dL (8.6-10.3); Carbon Dioxide 20 mEq/L (23-29); Chloride 111 mEq/L (98-107); Glucose 168 mg/dL (70-105); Lipase 25 Units/L (11-82); Osmolality,Calculated 294 (280-300); Potassium 4.2 mEq/L (3.5-5.1); Sodium 138 mEq/L (136-145); Total Protein 5.7 g/dL (6.4-8.9); eGFR For African Americans > 60 (> 60); eGFR For Non-African Americans 50 (> 60); eGFR For Non-African Americans 51 (> 60)
[2021-04-27] MEDS: Melatonin 3 MG TABLET PO SCH (20:07)
[2021-04-27] MEDS: traZODone 50 MG TABLET PO SCH (20:10)
[2021-04-27] MEDS ORDERED: *HR* HYDROmorphone (PF) 1 MG/ML SYRINGE IVP PRN (21:00)
[2021-04-28 07:45] LABS: Basophils # 0.1 K/mcL (0.0-0.2); Hematocrit 25.8 % (37.5-50.1); Mean Corpuscular Hemoglobin 23.4 pg (28.0-33.3); Mean Corpuscular Volume 75.4 fL (83.0-100.0); Mean Platelet Volume 8.3 fL (9.4-12.4); Nucleated Red Blood Cells 0.6 /100 WBC (0); Platelet Count 418 K/mcL (140-400); Red Blood Count 3.42 M/mcL (4.19-5.50); Red Cell Distribution Width 15.8 % (11.5-14.5); White Blood Count 7.1 K/mcL (4.3-11.1)
[2021-04-28 08:02] LABS: Calcium 8.7 mg/dL (8.6-10.3); Phosphorous 3.7 mg/dL (2.7-4.5); Potassium 4.4 mEq/L (3.5-5.1)
[2021-04-28] MEDS: Insulin LISPRO 300 UNITS/3 ML VIAL SUBQ SCH ×4 (08:54→20:51)
[2021-04-28] MEDS: cefTRIAXone 2,000 MG in 0.9 % Sodium Chloride Mini Bag 100 ML IVPB SCH (08:56)
[2021-04-28] MEDS: hydrALAZINE 25 MG TABLET PO SCH ×3 (09:01→20:46)
[2021-04-28] MEDS: metroNIDAZOLE 500 MG TABLET PO SCH ×3 (09:01→20:44)
[2021-04-28] MEDS: Topiramate 25 MG CAP.SPRINK PO SCH ×2 (09:01→20:44)
[2021-04-28] MEDS: *HR* Rivaroxaban 15 MG TABLET PO SCH ×2 (09:01→20:47)
[2021-04-28] MEDS: Pregabalin 75 MG CAPSULE PO SCH ×3 (09:01→20:46)
[2021-04-28] MEDS: amLODIPine 5 MG TABLET PO SCH (09:01)
[2021-04-28] MEDS: Insulin DETEMIR 100 UNIT/ML X5UNITS SUBQ SCH ×2 (09:05→21:20)
[2021-04-28 12:30] LABS: Anisocytosis 1+ (Not Present); Eosinophils # 0.4 K/mcL (0.0-0.6); Lymphocytes # 2.1 K/mcL (0.6-4.6); Monocytes # 0.2 K/mcL (0.0-1.3); Neutrophils # 4.1 K/mcL (1.6-8.9)
[2021-04-28 12:31] LABS: Polychromasia 1+ (Not Present)
[2021-04-28] MEDS: traZODone 50 MG TABLET PO SCH (20:45)
[2021-04-28] MEDS: Melatonin 3 MG TABLET PO SCH (20:45)
[2021-04-28] MEDS: *HR* HYDROmorphone (PF) 1 MG/ML SYRINGE IVP PRN (21:04)
[2021-04-29 08:14] LABS: BUN/Creatinine Ratio 29 (6-26); Blood Urea Nitrogen 40 mg/dL (6-20); Calcium 8.6 mg/dL (8.6-10.3); Carbon Dioxide 18 mEq/L (23-29); Chloride 110 mEq/L (98-107); Glucose 158 mg/dL (70-105); Osmolality,Calculated 295 (280-300); Phosphorous 4.1 mg/dL (2.7-4.5); Potassium 3.9 mEq/L (3.5-5.1); Sodium 136 mEq/L (136-145); eGFR For African Americans > 60 (> 60); eGFR For Non-African Americans 57 (> 60)
[2021-04-29] MEDS: hydrALAZINE 25 MG TABLET PO SCH ×3 (09:36→21:11)
[2021-04-29] MEDS: *HR* Buprenorphine HCl 8 MG TAB.SUBL SL SCH (09:36)
[2021-04-29] MEDS: *HR* HYDROmorphone (PF) 1 MG/ML SYRINGE IVP PRN (09:37)
[2021-04-29] MEDS: Pregabalin 75 MG CAPSULE PO SCH ×3 (09:37→21:11)
[2021-04-29] MEDS: Insulin LISPRO 300 UNITS/3 ML VIAL SUBQ SCH ×4 (09:37→21:28)
[2021-04-29] MEDS: metroNIDAZOLE 500 MG TABLET PO SCH ×3 (09:37→21:12)
[2021-04-29] MEDS: Topiramate 25 MG CAP.SPRINK PO SCH ×2 (09:37→21:12)
[2021-04-29] MEDS: amLODIPine 5 MG TABLET PO SCH (09:37)
[2021-04-29] MEDS: *HR* Rivaroxaban 15 MG TABLET PO SCH ×2 (09:37→21:11)
[2021-04-29] MEDS: Insulin DETEMIR 100 UNIT/ML X5UNITS SUBQ SCH ×2 (09:38→21:12)
[2021-04-29] MEDS: cefTRIAXone 2,000 MG in 0.9 % Sodium Chloride Mini Bag 100 ML IVPB SCH (09:38)
[2021-04-29 09:58] LABS: Basophils # 0.1 K/mcL (0.0-0.2); Basophils % 0.9 %; Eosinophils # 0.2 K/mcL (0.0-0.6); Eosinophils % 2.3 %; Hematocrit 24.4 % (37.5-50.1); Hemoglobin 7.8 g/dL (12.9-16.9); Immature Granulocytes % 4.8 % (0-4); Lymphocytes # 1.9 K/mcL (0.6-4.6); Lymphocytes % 23.5 %; Mean Corpuscular Hemoglobin 23.8 pg (28.0-33.3); Mean Corpuscular Volume 74.4 fL (83.0-100.0); Mean Platelet Volume 8.2 fL (9.4-12.4); Monocytes # 0.7 K/mcL (0.0-1.3); Monocytes % 8.5 %; Neutrophils # 4.7 K/mcL (1.6-8.9); Nucleated Red Blood Cells 0.4 /100 WBC (0); Platelet Count 394 K/mcL (140-400); Red Blood Count 3.28 M/mcL (4.19-5.50); Red Cell Distribution Width 15.8 % (11.5-14.5); White Blood Count 7.9 K/mcL (4.3-11.1)
[2021-04-29] MEDS: traZODone 50 MG TABLET PO SCH (21:11)
[2021-04-29] MEDS: Melatonin 3 MG TABLET PO SCH (21:11)
[2021-04-30 03:06] LABS: Hematocrit 24.9 % (37.5-50.1); Hemoglobin 7.8 g/dL (12.9-16.9); Mean Corpuscular HGB Conc 31.3 g/dL (31.6-35.5); Mean Corpuscular Hemoglobin 23.6 pg (28.0-33.3); Mean Corpuscular Volume 75.2 fL (83.0-100.0); Mean Platelet Volume 8.6 fL (9.4-12.4); Platelet Count 403 K/mcL (140-400); Red Blood Count 3.31 M/mcL (4.19-5.50); Red Cell Distribution Width 16.3 % (11.5-14.5); White Blood Count 7.6 K/mcL (4.3-11.1)
[2021-04-30 03:16] LABS: Calcium 8.6 mg/dL (8.6-10.3); Potassium 4.4 mEq/L (3.5-5.1)
[2021-04-30] MEDS: hydrALAZINE 25 MG TABLET PO SCH ×3 (08:20→21:17)
[2021-04-30] MEDS: Topiramate 25 MG CAP.SPRINK PO SCH ×2 (08:20→21:19)
[2021-04-30] MEDS: *HR* Buprenorphine HCl 8 MG TAB.SUBL SL SCH (08:20)
[2021-04-30] MEDS: *HR* Rivaroxaban 15 MG TABLET PO SCH ×2 (08:21→21:20)
[2021-04-30] MEDS: metroNIDAZOLE 500 MG TABLET PO SCH (08:21)
[2021-04-30] MEDS: amLODIPine 5 MG TABLET PO SCH (08:21)
[2021-04-30] MEDS: Pregabalin 75 MG CAPSULE PO SCH ×3 (08:21→21:20)
[2021-04-30] MEDS: Insulin LISPRO 300 UNITS/3 ML VIAL SUBQ SCH ×4 (08:22→21:22)
[2021-04-30] MEDS: Insulin DETEMIR 100 UNIT/ML X5UNITS SUBQ SCH ×2 (08:27→21:34)
[2021-04-30 09:01] LABS: Calcium 8.4 mg/dL (8.6-10.3); Potassium 4.7 mEq/L (3.5-5.1)
[2021-04-30] MEDS: cefTRIAXone 2,000 MG in 0.9 % Sodium Chloride Mini Bag 100 ML IVPB SCH (09:05)
[2021-04-30] MEDS: Acetaminophen 325 MG TABLET PO PRN (11:56)
[2021-04-30] MEDS: traZODone 50 MG TABLET PO SCH (21:17)
[2021-04-30] MEDS: Melatonin 3 MG TABLET PO SCH (21:21)
[2021-05-01] MEDS: Acetaminophen 325 MG TABLET PO PRN ×2 (00:46→21:09)
[2021-05-01 04:54] LABS: Hematocrit 26.7 % (37.5-50.1); Hemoglobin 8.1 g/dL (12.9-16.9); Mean Corpuscular HGB Conc 30.3 g/dL (31.6-35.5); Mean Corpuscular Hemoglobin 23.7 pg (28.0-33.3); Mean Corpuscular Volume 78.1 fL (83.0-100.0); Mean Platelet Volume 8.4 fL (9.4-12.4); Platelet Count 333 K/mcL (140-400); Red Blood Count 3.42 M/mcL (4.19-5.50); Red Cell Distribution Width 16.5 % (11.5-14.5); White Blood Count 6.1 K/mcL (4.3-11.1)
[2021-05-01 05:13] LABS: Calcium 8.2 mg/dL (8.6-10.3); Potassium 4.5 mEq/L (3.5-5.1)
[2021-05-01] MEDS ORDERED: 0.9 % Sodium Chloride 500 ML IVC ONE (07:38)
[2021-05-01] MEDS: Pregabalin 75 MG CAPSULE PO SCH ×3 (10:12→21:10)
[2021-05-01] MEDS: hydrALAZINE 25 MG TABLET PO SCH ×3 (10:12→21:09)
[2021-05-01] MEDS: amLODIPine 5 MG TABLET PO SCH (10:12)
[2021-05-01] MEDS: *HR* Buprenorphine HCl 8 MG TAB.SUBL SL SCH (10:12)
[2021-05-01] MEDS: Topiramate 25 MG CAP.SPRINK PO SCH ×2 (10:12→21:09)
[2021-05-01] MEDS: Insulin LISPRO 300 UNITS/3 ML VIAL SUBQ SCH ×4 (10:13→21:07)
[2021-05-01] MEDS: Insulin DETEMIR 100 UNIT/ML X5UNITS SUBQ SCH ×2 (10:18→21:07)
[2021-05-01] MEDS: cefTRIAXone 2,000 MG in 0.9 % Sodium Chloride Mini Bag 100 ML IVPB SCH (10:37)
[2021-05-01] MEDS: *HR* Rivaroxaban 15 MG TABLET PO SCH ×2 (10:39→21:13)
[2021-05-01 11:56] LABS: BUN/Creatinine Ratio 26 (6-26); Blood Urea Nitrogen 40 mg/dL (6-20); Calcium 8.5 mg/dL (8.6-10.3); Carbon Dioxide 17 mEq/L (23-29); Chloride 112 mEq/L (98-107); Glucose 229 mg/dL (70-105); Osmolality,Calculated 301 (280-300); Potassium 4.8 mEq/L (3.5-5.1); Sodium 137 mEq/L (136-145); eGFR For African Americans > 60 (> 60); eGFR For Non-African Americans 51 (> 60)
[2021-05-01] MEDS: tiZANidine 4 MG TABLET PO PRN (17:13)
[2021-05-01] MEDS: Melatonin 3 MG TABLET PO SCH (21:08)
[2021-05-01] MEDS: traZODone 50 MG TABLET PO SCH (21:13)
[2021-05-02 03:26] LABS: Hematocrit 25.5 % (37.5-50.1); Hemoglobin 7.9 g/dL (12.9-16.9); Mean Corpuscular Hemoglobin 23.2 pg (28.0-33.3); Mean Platelet Volume 8.9 fL (9.4-12.4); Platelet Count 327 K/mcL (140-400); Red Cell Distribution Width 16.4 % (11.5-14.5); White Blood Count 6.2 K/mcL (4.3-11.1)
[2021-05-02 03:34] LABS: Calcium 8.4 mg/dL (8.6-10.3); Potassium 4.9 mEq/L (3.5-5.1)
[2021-05-02] MEDS: Acetaminophen 325 MG TABLET PO PRN (06:09)
[2021-05-02] MEDS ORDERED: 0.9 % Sodium Chloride 500 ML IVC ONE (08:25)
[2021-05-02] MEDS: *HR* Rivaroxaban 15 MG TABLET PO SCH ×2 (08:50→22:07)
[2021-05-02] MEDS: amLODIPine 5 MG TABLET PO SCH (08:50)
[2021-05-02] MEDS: hydrALAZINE 25 MG TABLET PO SCH ×3 (08:50→22:09)
[2021-05-02] MEDS: *HR* Buprenorphine HCl 8 MG TAB.SUBL SL SCH (08:51)
[2021-05-02] MEDS: tiZANidine 4 MG TABLET PO PRN ×2 (08:51→22:19)
[2021-05-02] MEDS: cefTRIAXone 2,000 MG in 0.9 % Sodium Chloride Mini Bag 100 ML IVPB SCH (08:51)
[2021-05-02] MEDS: Pregabalin 75 MG CAPSULE PO SCH ×3 (08:52→22:07)
[2021-05-02] MEDS: Insulin LISPRO 300 UNITS/3 ML VIAL SUBQ SCH ×4 (09:05→22:04)
[2021-05-02] MEDS: Insulin DETEMIR 100 UNIT/ML X5UNITS SUBQ SCH ×2 (09:06→22:02)
[2021-05-02] MEDS: Topiramate 25 MG CAP.SPRINK PO SCH ×2 (09:08→22:09)
[2021-05-02] MEDS: Melatonin 3 MG TABLET PO SCH (22:06)
[2021-05-02] MEDS: traZODone 50 MG TABLET PO SCH (22:08)
[2021-05-03 05:04] LABS: Hematocrit 25.2 % (37.5-50.1); Hemoglobin 8.1 g/dL (12.9-16.9); Mean Corpuscular HGB Conc 32.1 g/dL (31.6-35.5); Mean Corpuscular Hemoglobin 24.1 pg (28.0-33.3); Mean Platelet Volume 8.5 fL (9.4-12.4); Platelet Count 319 K/mcL (140-400); Red Blood Count 3.36 M/mcL (4.19-5.50); Red Cell Distribution Width 16.4 % (11.5-14.5); White Blood Count 6.3 K/mcL (4.3-11.1)
[2021-05-03 05:22] LABS: BUN/Creatinine Ratio 33 (6-26); Blood Urea Nitrogen 47 mg/dL (6-20); Calcium 8.6 mg/dL (8.6-10.3); Carbon Dioxide 18 mEq/L (23-29); Chloride 111 mEq/L (98-107); Glucose 271 mg/dL (70-105); Osmolality,Calculated 304 (280-300); Potassium 4.4 mEq/L (3.5-5.1); Sodium 136 mEq/L (136-145); eGFR For African Americans > 60 (> 60); eGFR For Non-African Americans 56 (> 60)
[2021-05-03] MEDS: *HR* Rivaroxaban 15 MG TABLET PO SCH ×2 (08:28→20:42)
[2021-05-03] MEDS: amLODIPine 5 MG TABLET PO SCH (08:28)
[2021-05-03] MEDS: hydrALAZINE 25 MG TABLET PO SCH ×3 (08:29→20:50)
[2021-05-03] MEDS: tiZANidine 4 MG TABLET PO PRN ×2 (08:29→16:50)
[2021-05-03] MEDS: Pregabalin 75 MG CAPSULE PO SCH ×3 (08:29→20:43)
[2021-05-03] MEDS: *HR* Buprenorphine HCl 8 MG TAB.SUBL SL SCH (08:29)
[2021-05-03] MEDS: cefTRIAXone 2,000 MG in 0.9 % Sodium Chloride Mini Bag 100 ML IVPB SCH (08:29)
[2021-05-03] MEDS: Insulin LISPRO 300 UNITS/3 ML VIAL SUBQ SCH ×4 (08:35→20:39)
[2021-05-03] MEDS: Topiramate 25 MG CAP.SPRINK PO SCH ×2 (08:36→20:42)
[2021-05-03] MEDS: Insulin DETEMIR 100 UNIT/ML X5UNITS SUBQ SCH ×2 (08:36→20:50)
[2021-05-03] MEDS: Melatonin 3 MG TABLET PO SCH (20:40)
[2021-05-03] MEDS: traZODone 50 MG TABLET PO SCH (20:43)
[2021-05-04] MEDS: tiZANidine 4 MG TABLET PO PRN (08:54)
[2021-05-04] MEDS: hydrALAZINE 25 MG TABLET PO SCH (08:54)
[2021-05-04] MEDS: amLODIPine 5 MG TABLET PO SCH (08:54)
[2021-05-04] MEDS: *HR* Buprenorphine HCl 8 MG TAB.SUBL SL SCH (08:54)
[2021-05-04] MEDS: Topiramate 25 MG CAP.SPRINK PO SCH (08:54)
[2021-05-04] MEDS: *HR* Rivaroxaban 15 MG TABLET PO SCH (08:54)
[2021-05-04] MEDS: Pregabalin 75 MG CAPSULE PO SCH (08:54)
[2021-05-04] MEDS: cefTRIAXone 2,000 MG in 0.9 % Sodium Chloride Mini Bag 100 ML IVPB SCH (08:54)
[2021-05-04] MEDS: Insulin LISPRO 300 UNITS/3 ML VIAL SUBQ SCH ×2 (08:57→11:53)
[2021-05-04] MEDS ORDERED: Insulin DETEMIR 100 UNIT/ML X5UNITS SUBQ SCH (09:00)
[2021-05-04 10:11] LABS: Adenovirus Not Detected (Not Detect); Bordetella Pertussis Not Detected (Not Detect); Chlamydophila pneumoniae Not Detected (Not Detect); Coronavirus 229E Not Detected (Not Detect); Coronavirus HKU1 Not Detected (Not Detect); Coronavirus NL63 Not Detected (Not Detect); Coronavirus OC43 Not Detected (Not Detect); Human Metapneumovirus Not Detected (Not Detect); Human Rhinovirus/Enterovirus Not Detected (Not Detect); Influenza A Subtype 2009 H1 Not Detected (Not Detect); Influenza B Not Detected (Not Detect); Mycoplasma pneumoniae Not Detected (Not Detect); Parainfluenza Virus 1 Not Detected (Not Detect); Parainfluenza Virus 2 Not Detected (Not Detect); Parainfluenza Virus 3 Not Detected (Not Detect); Parainfluenza Virus 4 Not Detected (Not Detect); Respiratory Syncytial Virus Not Detected (Not Detect); SARS-CoV-2 Not Detected (Not Detect)
[2021-05-04 11:53] VITALS: BP 104/65; PULSE 70; TEMP 97.6; O2SAT 99
== END 2021-05-04 15:07 | DRG 856 ==
LOC: 3ANU → SUATTDRO 04-24 17:10 → 2ANU 04-29 04:14
PROVIDERS: ADMIT Internal Medicine; ATTEND Family Medicine